=== PATIENT | female | born 1990 | race Caucasian/White ===

== ENCOUNTER → 2021-06-30 | Outpatient (CLI) | payer OTHER | END | disposition home or self-care (01) | LOC: LAB SHORT 09:54 → LAB 09:54 | DX: N39.0 Urinary tract infection, site not specified (principal) | CPT/HCPCS: 87077; 87086; 87186 ==

== ENCOUNTER → 2021-08-30 | Outpatient (CLI) | payer OTHER | LOC: LAB SHORT 08:15 | DX: K21.9 Gastro-esophageal reflux disease without esophagitis (principal) | CPT/HCPCS: 87338 ==

== ENCOUNTER → 2021-09-20 | Outpatient (CLI) | payer OTHER ==
[2021-09-21 11:05] LABS: Creatinine Urine 79.9 mg/dL (27.00-270.00)
== END | disposition home or self-care (01) ==
LOC: LAB SHORT 07:10 → LAB 07:10
PROVIDERS: Internal Medicine Endocrinology, Diabetes & Metabolism
DX: E24.9 Cushing's syndrome, unspecified (principal); I10 Essential (primary) hypertension
CPT/HCPCS: 81050; 82570

== ENCOUNTER → 2021-10-21 | Outpatient (CLI) | payer OTHER | END | disposition home or self-care (01) | LOC: LAB SHORT 11:02 | DX: E24.9 Cushing's syndrome, unspecified (principal) | CPT/HCPCS: 82533 ==

== ENCOUNTER → 2021-10-22 | Outpatient (CLI) | payer OTHER | END | disposition home or self-care (01) | LOC: LAB SHORT 09:44 | DX: E24.9 Cushing's syndrome, unspecified (principal) | CPT/HCPCS: 82533 ==

== ENCOUNTER 2022-09-10 08:53 | Day surgery (SDC) | payer OTHER ==
[~2022-09-10] VITALS: Ht 162.6 cm; Wt 83.5 kg
[2022-09-10] MEDS ORDERED: TRAZ50 (09:57)
[2022-09-10] MEDS ORDERED: METF500 PO (10:02)
[2022-09-10] MEDS ORDERED: TRAZ50 PO (10:02)
[2022-09-10] MEDS ORDERED: ALDACTONE25 MG (10:02)
[2022-09-10] MEDS ORDERED: LORA10ER PO (10:03)
--- NOTE | 2022-09-10 10:37 | NUR ---
09/10/22 Chelsey Lanier 15ML OF BUPIVICAINE 0.25% MIXED 1:1 WITH 15ML OF BUPIVICAINE 0.75% TO CREATE A SOLUTION OF BUPIVICAINE 0.5%. 0.15ML OF EPI 1MG/ML ADDED TO THE 30MLS OF BUPIVICAINE 0.5% TO CREATE A SOLUTION OF BUPIVICAINE 0.5% WITH EPI 1:200,000.
== END 2022-09-10 12:49 | disposition home or self-care (01) ==
LOC: ORSCSDS 08:53
PROVIDERS: Podiatrist Foot & Ankle Surgery
PROC: 0QSR04Z Reposition Left Toe Phalanx with Internal Fixation Device, Open Approach (ICD-10-PCS; principal; 2022-09-10 10:15)
PROC: 0SGJ04Z Fusion of Left Tarsal Joint with Internal Fixation Device, Open Approach (ICD-10-PCS; principal; 2022-09-10 10:15)
DX: M20.12 Hallux valgus (acquired), left foot (principal); E11.9 Type 2 diabetes mellitus without complications; Z79.84 Long term (current) use of oral hypoglycemic drugs; Z79.899 Other long term (current) drug therapy
CPT/HCPCS: 82947; C1713; J0690; J1100; J2250; J2405; J2704; J3010; J7120